=== PATIENT | male | born 1985 | race Asian ===

== ENCOUNTER 2020-04-17 18:49 | Emergency (ER) | payer OTHER, SELFPAY ==
[~2020-04-17] VITALS: Ht 167.6 cm; Wt 95.3 kg
[2020-04-17 18:58] VITALS: BP 151/101; Ht 167.6 cm; Wt 95.3 kg
== END 2020-04-17 20:53 | disposition home or self-care (01) ==
LOC: ED 18:49
DX: M94.0 Chondrocostal junction syndrome [Tietze] (principal); F17.210 Nicotine dependence, cigarettes, uncomplicated; I10 Essential (primary) hypertension; J45.909 Unspecified asthma, uncomplicated
CPT/HCPCS: 99406